=== PATIENT | female | born 1985 | race Two or more races ===

== ENCOUNTER 2021-02-13 17:25 | Emergency (ER) | payer OTHER ==
[2021-02-13 18:31] LABS: BILIRUBIN NEGATIVE (NEGATIVE); BLOOD TRACE-INTACT Ery/uL (NEGATIVE); CLARITY CLEAR (CLEAR); COLOR YELLOW (YELLOW); GLUCOSE (U) NORMAL (NORMAL); LEUKOCYTES NEGATIVE Leu/uL (NEGATIVE); NITRITE NEGATIVE (NEGATIVE); PROTEIN NEGATIVE (NEGATIVE)
[2021-02-13 18:45] LABS: AMORPHOUS URATES CRYSTALS MODERATE; BACTERIA 2+
[2021-02-13 18:47] LABS: BASOPHIL 0.7 % (0-2); HCT 39.6 % (37.0-47.0); HGB 13.1 g/dl (12.5-16.0); LYMPHOCYTE 33.6 % (15-48); MCH 28.4 pg (25.0-31.0); MCHC 33.1 g/dL (32.0-36.0); MCV 85.7 fL (78.0-100.0); MPV 9.7 fL (6.0-9.5); NEUTROPHIL 56.4 % (41-80); NRBC 0; PLT 433 K/uL (150-400); RBC 4.62 M/uL (4.20-5.40); WBC 6.9 K/uL (4.0-10.5)
[2021-02-13 19:10] LABS: BILIRUBIN - TOTAL 0.4 mg/dL (0.2-1.0); CREATININE 0.48 mg/dL (0.51-0.95); GLOBULIN (CALCULATION) 3.5 g/dL; POTASSIUM 3.5 mmol/L (3.5-5.1); TOTAL PROTEIN 7.5 g/dL (6.4-8.2)
[2021-02-13] MEDS ORDERED: NORCO 5-325 TA1 EACH PO (22:14)
[2021-02-13] MEDS ORDERED: BENTYL10 MG PO (22:14)
== END 2021-02-13 22:28 | disposition home or self-care (01) ==
LOC: FER 17:25
PROVIDERS: Emergency Medicine
DX: K59.00 Constipation, unspecified (principal); Z98.51 Tubal ligation status
CPT/HCPCS: 36415; 74022; 80053; 81001; 82150; 83690; 85025; 87339